=== PATIENT | female | born 1965 | race Caucasian/White ===

== ENCOUNTER 2020-11-27 11:37 | Emergency (ER) | payer BC ==
[2020-11-27] MEDS ORDERED: Acetaminophen 325 MG Tab PO ONE (12:11)
--- NOTE | 2020-11-27 12:29 | EDM.PDOC ---
ED HPI GENERAL MEDICAL PROBLEM - General Chief Complaint: General Stated Complaint: HIGH BP/DIZZY Time Seen by Provider: 11/27/20 11:46 Source of Information: Reports: Patient History Limitations: Reports: No Limitations - History of Present Illness INITIAL COMMENTS - FREE TEXT/NARRATIVE: 55-year-old female presents the emergency department today with complaints of high blood pressure, headache and generalized weakness. She states that she woke this morning with some generalized weakness. She states she used her inhaler and started to feel very shaky. She contributed the shakiness to her inhaler as she sometimes feels this way after using it. However it did not resolve. She states she took her blood pressure medication, lisinopril. She then checked her blood pressure and felt it to be elevated at 150s over 90s. She states she rechecked it about 4 times thereafter and it remained in the 150s over low 100s. She states she then went to work and started to feel more weak and her headache became more pronounced. She had not eaten yet so at approximately 945 this morning she had some cheese and crackers as she thought that maybe her blood sugar was slightly low. She states that this did not resolve her weakness. She has not taking anything for her headache. She denies any blurred vision or double vision. She denies any recent fever, chills, nausea or vomiting or diarrhea. She denies any black tarry stools. She has had no cough. She states she is a smoker. She occasionally drinks alcohol and denies any recreational drug use. She states she does have 2 cups of coffee every morning and then drinks tea throughout the day. Denies any history of OH or stroke. Nursing staff did perform a bedside blood glucose check and it was 117 g/dL. 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 History: Reports: Musculoskeletal History: Reports: Back Pain, Chronic, Fracture - Infectious Disease History Infectious Disease History: Reports: Chicken Pox, Measles - Past Surgical History Female Surgical History: Reports: Tubal Ligation Musculoskeletal Surgical History: Reports: Carpal Tunnel Social & Family History - Family History Family Medical History: No Pertinent Family History - Tobacco Use Tobacco Use Status *Q: Current Every Day Tobacco User Years of Tobacco use: 25 Packs/Tins Daily: 1 - Caffeine Use Caffeine Use: Reports: Coffee, Tea - Recreational Drug Use Recreational Drug Use: No - Living Situation & Occupation Living situation: Reports: Occupation: Employed ED ROS GENERAL - Review of Systems Review Of Systems: Comprehensive ROS is negative, except as noted in HPI. ED EXAM, GENERAL - Physical Exam Exam: See Below Exam Limited By: No Limitations General Appearance: Alert, WD/WN, No Apparent Distress Eye Exam: Bilateral Eye: EOMI, PERRL Ears: Normal External Exam, Hearing Grossly Normal Nose: Normal Inspection Throat/Mouth: Normal Inspection, Normal Lips, Normal Voice, No Airway Compromise Head: Atraumatic, Normocephalic Neck: Normal Inspection, Supple Respiratory/Chest: No Respiratory Distress, Lungs Clear, Normal Breath Sounds, No Accessory Muscle Use, Chest Non-Tender Cardiovascular: Normal Peripheral Pulses, Regular Rate, Rhythm, No Edema, No Murmur Peripheral Pulses: 2+: Radial (L), Radial (R) GI/Abdominal: Normal Bowel Sounds, Soft, Non-Tender, No Distention (Female) Exam: Deferred Rectal (Female) Exam: Deferred Back Exam: Normal Inspection Extremities: Normal Inspection, Normal Range of Motion, Non-Tender, No Pedal Edema, Normal Capillary Refill Neurological: Alert, Oriented, CN II-XII Intact, Normal Cognition Psychiatric: Normal Affect, Normal Mood Skin Exam: Warm, Dry, Intact, Normal Color, No Rash Lymphatic: No Adenopathy #1 Interpretation EKG Date: 11/27/20 Time: 12:24 Rhythm: NSR Rate (Beats/Min): 69 [place]: Normal P-Wave: Present QRS: Normal ST-T: Normal QT: Normal EKG Interpretation Comments: Per Dr. Bowen interpretation: Sinus rhythm at 70 bpm; P wave inverted V1 and V2; consider left atrial hypertrophy; tall R wave in lead Iconsider LVH; LAD - 31 degrees Course - Vital Signs Text/Narrative:: Upon assessment, the patient complains of a generalized headache. She denies that it is a throbbing headache. Full neuro exam is unremarkable. However, she states she feels very "shaky "and weak. Denies any ringing in her ears or spinning sensation of the room. Due to the patient's history of hypertension and smoking I have ordered for her to have a CT of the head to rule out stroke. I have also ordered a cardiac work-up to include CBC, CMP, CRP, troponin, and a TSH level. Also ordered an EKG and a portable view of the chest. She will receive 650 milligrams Tylenol p.o. x1 dose for her headache. Last Recorded V/S: Last Vital Signs Temp 97.6 F 11/27/20 11:46 Pulse 76 11/27/20 11:46 Resp 18 11/27/20 11:46 BP 158/90 H 11/27/20 11:46 Pulse Ox 99 11/27/20 11:46 - Orders/Labs/Meds Orders: Active Orders 24 hr Category Date Time Status EKG Documentation Completion [RC] STAT Care 11/27/20 12:11 Active Labs: Laboratory Tests 11/27/20 11/27/20 11/27/20 Range/Units 11:57 12:21 12:21 WBC 5.34 (3.98-10.04) K/mm3 RBC 4.28 (3.98-5.22) M/mm3 Hgb 13.0 D (11.2-15.7) gm/dl Hct 39.5 (34.1-44.9) % MCV 92.3 (79.4-94.8) fl MCH 30.4 (25.6-32.2) pg MCHC 32.9 (32.2-35.5) g/dl RDW Std Deviation 44.6 (36.4-46.3) fL Plt Count 309 (182-369) K/mm3 MPV 9.4 (9.4-12.3) fl Neut % (Auto) 51.7 (34.0-71.1) % Lymph % (Auto) 38.0 (19.3-51.7) % [place] % (Auto) 7.1 (4.7-12.5) % Eos % (Auto) 2.4 (0.7-5.8) Baso % (Auto) 0.6 (0.1-1.2) % Neut # (Auto) 2.76 (1.56-6.13) K/mm3 Lymph # (Auto) 2.03 (1.18-3.74) K/mm3 [place] # (Auto) 0.38 H (0.24-0.36) K/mm3 Eos # (Auto) 0.13 (0.04-0.36) K/mm3 Baso # (Auto) 0.03 (0.01-0.08) K/mm3 Sodium 140 (136-145) mEq/L Potassium 3.4 L (3.5-5.1) mEq/L Chloride 104 (98-107) mEq/L Carbon Dioxide 25 (21-32) mEq/L Anion Gap 14.4 (5-15) BUN 11 (7-18) mg/dL Creatinine 0.8 (0.55-1.02) mg/dL Est Cr Clr Drug Dosing 70.23 mL/min Estimated GFR (MDRD) > 60 (>60) mL/min BUN/Creatinine Ratio 13.8 L (14-18) Glucose 101 H (70-99) mg/dL POC Glucose 117 H (70-99) mg/dL Calcium 8.5 (8.5-10.1) mg/dL Magnesium 1.9 (1.8-2.4) mg/dL Total Bilirubin 0.3 (0.2-1.0) mg/dL AST 12 L (15-37) U/L ALT 21 (14-59) U/L Alkaline Phosphatase 56 (46-116) U/L Troponin I < 0.017 (0.00-0.056) ng/mL C-Reactive Protein <0.2 (<1.0) mg/dL Total Protein 6.8 (6.4-8.2) g/dl Albumin 3.8 (3.4-5.0) g/dl Globulin 3.0 gm/dL Albumin/Globulin Ratio 1.3 (1-2) TSH 3rd Generation 0.878 (0.358-3.74) uIU/mL Urine Color (Yellow) Urine Appearance (Clear) Urine pH (5.0-8.0) Ur Specific [place] (1.005-1.030) Urine Protein (Negative) Urine Glucose (UA) (Negative) Urine Ketones (Negative) Urine Occult Blood (Negative) Urine Nitrite (Negative) Urine Bilirubin (Negative) Urine Urobilinogen (0.2-1.0) Ur Leukocyte Esterase (Negative) 11/27/20 Range/Units 12:41 WBC (3.98-10.04) K/mm3 RBC (3.98-5.22) M/mm3 Hgb (11.2-15.7) gm/dl Hct (34.1-44.9) % MCV (79.4-94.8) fl MCH (25.6-32.2) pg MCHC (32.2-35.5) g/dl RDW Std Deviation (36.4-46.3) fL Plt Count (182-369) K/mm3 MPV (9.4-12.3) fl Neut % (Auto) (34.0-71.1) % Lymph % (Auto) (19.3-51.7) % [place] % (Auto) (4.7-12.5) % Eos % (Auto) (0.7-5.8) Baso % (Auto) (0.1-1.2) % Neut # (Auto) (1.56-6.13) K/mm3 Lymph # (Auto) (1.18-3.74) K/mm3 [place] # (Auto) (0.24-0.36) K/mm3 Eos # (Auto) (0.04-0.36) K/mm3 Baso # (Auto) (0.01-0.08) K/mm3 Sodium (136-145) mEq/L Potassium (3.5-5.1) mEq/L Chloride (98-107) mEq/L Carbon Dioxide (21-32) mEq/L Anion Gap (5-15) BUN (7-18) mg/dL Creatinine (0.55-1.02) mg/dL Est Cr Clr Drug Dosing mL/min Estimated GFR (MDRD) (>60) mL/min BUN/Creatinine Ratio (14-18) Glucose (70-99) mg/dL POC Glucose (70-99) mg/dL Calcium (8.5-10.1) mg/dL Magnesium (1.8-2.4) mg/dL Total Bilirubin (0.2-1.0) mg/dL AST (15-37) U/L ALT (14-59) U/L Alkaline Phosphatase (46-116) U/L Troponin I (0.00-0.056) ng/mL C-Reactive Protein (<1.0) mg/dL Total Protein (6.4-8.2) g/dl Albumin (3.4-5.0) g/dl Globulin gm/dL Albumin/Globulin Ratio (1-2) TSH 3rd Generation (0.358-3.74) uIU/mL Urine Color Yellow (Yellow) Urine Appearance Slt cloudy H (Clear) Urine pH 6.0 (5.0-8.0) Ur Specific [place] 1.015 (1.005-1.030) Urine Protein Negative (Negative) Urine Glucose (UA) Negative (Negative) Urine Ketones Negative (Negative) Urine Occult Blood Negative (Negative) Urine Nitrite Negative (Negative) Urine Bilirubin Negative (Negative) Urine Urobilinogen 0.2 (0.2-1.0) Ur Leukocyte Esterase Negative (Negative) Meds: Medications Discontinued Medications Generic Name Dose Route Start Last Admin Trade Name Freq PRN Reason Stop Dose Admin Acetaminophen 650 mg 11/27/20 12:11 11/27/20 12:31 Acetaminophen 325 Mg Tab PO 11/27/20 12:12 650 mg NOW ONE Administration Potassium Chloride 40 meq 11/27/20 12:56 11/27/20 13:08 Potassium Chloride 20 Meq Tab.Er PO 11/27/20 12:57 40 meq ONETIME ONE Administration - Re-Assessments/Exams Free Text/Narrative Re-Assessment/Exam: 11/27/20 13:06 Hematology is unremarkable Chemistry reveals a sodium of 140, potassium 3.4, anion gap 14.4, BUN 11, creatinine 0.8, glucose 101, magnesium 1.9, AST 12, ALT 21, troponin less than 0.017, C-reactive protein less than 0.2, TSH 0.878 Ordered for the patient to receive 40 mEq of potassium p.o. as her potassium level is slightly low. Urinalysis is unremarkable 11/27/20 13:[address] of the head: 1. Mild atherosclerotic calcification is seen within the vertebral vessels and carotic siphon. 2. Nothing acute is seen on noncontrast head CT exam. Nothing acute is appreciated on portable view of the chest. Official radiology report is pending. 11/27/20 13:11 Patient's blood pressure is down to 133/84 so I do not feel like any change in her blood pressure medications is warranted at this time. Unaware of what the cause is of her "shakiness ". Could be due to her inhaler that she did take this morning combined with her caffeine however she will be discharged with recommendations that she follow-up with her primary care provider for further evaluation. 11/27/20 13:13 Radiologist impression portable view of the chest: Nothing acute is seen on portable chest x-ray. Departure - Departure Time of Disposition: 13:13 Disposition: Home, Self-Care 01 Condition: Good Clinical Impression: Weakness generalized - Discharge Information Instructions: Weakness, [id number] Referrals: Melia Edwards PA-C [Primary Care Provider] - Forms: ED Department Discharge Additional Instructions: You were seen in the emergency department today with headache, generalized weakness and shakiness. CT of the head was completed to rule out stroke and there is nothing acute seen on the CT scan for the radiologist impression. Full cardiac work-up for labs was completed and there is nothing acute appreciated in your lab work however your potassium level was slightly low so we did supplement this while in the emergency department. Could try to eat a potassium rich diet such as eating a banana a day or drinking Gatorade or Powerade to replace electrolytes. Thyroid level was also checked and this was unremarkable. Chest x- ray was unremarkable. As well as a urinalysis. Shakiness and weakness could have been due to using your inhaler this morning combined with smoking and caffeine intake. Recommend that you eat breakfast earlier in the morning and drink plenty of fluids throughout the day and decrease your caffeine intake. Last blood pres sure check was 133/84 so I do not believe that your blood pressure medications need to be changed at this time. Recommend that you follow-up with Melia Edwards in about a week for reevaluation. Should your condition worsen or change, do not hesitate returning to the emergency department. Sepsis Event Note (ED) - Evaluation Sepsis Screening Result: No Definite Risk - Focused Exam Vital Signs: Vital Signs Temp Pulse Resp BP Pulse Ox 11/27/20 11:46 97.6 F 76 18 158/90 H 99 - My Orders Last 24 Hours: My Active Orders 11/27/20 12:11 EKG Documentation Completion [RC] STAT - Assessment/Plan Last 24 Hours: My Active Orders 11/27/20 12:11 EKG Documentation Completion [RC] STAT
--- NOTE | 2020-11-27 12:52 | CT ---
Head CT Technique: Multiple axial sections through the brain were obtained. Intravenous contrast was not utilized. Reconstructed coronal and sagittal images were obtained. Comparison: No prior intracranial imaging is available. Findings: Ventricles along with basal cisterns and sulci over the convexities are within normal limits for the patient's age. No abnormal parenchymal densities are seen. No evidence of intracranial hemorrhage. No midline shift or mass-effect is seen. Mild atherosclerotic calcification is seen within the vertebral vessels and carotid siphon. Bone window settings were reviewed. No acute calvarial abnormality is appreciated. Visualized paranasal sinuses and mastoid sinuses show nothing acute. Impression: 1. Slight intravascular calcification as noted above. 2. Nothing acute is seen on noncontrast head CT exam. Diagnostic code #2
[2020-11-27] MEDS ORDERED: Potassium Chloride 20 MEQ Tab.ER PO ONE (12:56)
--- NOTE | 2020-11-27 13:07 | CR ---
Chest: Portable view of the chest was obtained. Comparison: Prior chest x-ray of 06/13/13. Heart size and mediastinum are within normal limits for portable technique. Lungs are clear with no acute parenchymal change. No acute osseous abnormality is appreciated. Impression: 1. Nothing acute is seen on portable chest x-ray. Diagnostic code #1
== END 2020-11-27 13:30 | disposition home or self-care (01) ==
LOC: JD.ED 11:37
DX: R53.1 Weakness (principal); I10 Essential (primary) hypertension; Z72.0 Tobacco use
CPT/HCPCS: 36415; 70450; 71045; 80053; 81003; 82947; 83735; 84443; 84484; 85025; 86140; 93005; 99285; A9270; 93010; 99284

== ENCOUNTER 2021-08-11 10:40 | Emergency (ER) | payer BC ==
[2021-08-11] MEDS ORDERED: Sodium Chloride 0.9% 10 ML Syringe FLUSH PRN (11:20)
[2021-08-11] MEDS ORDERED: Alum Hydrox/Mag Hydrox/Simeth 30 ML, Lidocaine 2% 15 ML PO ONE ×2 (11:21)
== END 2021-08-11 13:00 | disposition home or self-care (01) ==
LOC: JD.ED 10:40
DX: K29.00 Acute gastritis without bleeding (principal); E78.00 Pure hypercholesterolemia, unspecified; I10 Essential (primary) hypertension; K21.9 Gastro-esophageal reflux disease without esophagitis; Z79.899 Other long term (current) drug therapy; Z72.0 Tobacco use
CPT/HCPCS: 36415; 71045; 80053; 83690; 83735; 84443; 84484; 85025; 93005; 99285; A9270; 93010